=== PATIENT | male | born 1950 | race Caucasian/White ===

== ENCOUNTER 2023-06-24 10:05 | Outpatient (AMB) | payer MEDICARE, OTHER, SELFPAY ==
[2023-06-24 10:07] VITALS: BP 126/64; PULSE 87; O2SAT 100; BMI 23.1
--- NOTE | 2023-06-24 10:07 | HO.NEPHOV ---
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 Recently he was in the emergency room and was found to have a sodium of 122. Subsequently sodium increased to 124 and he has been referred for further evaluation. During this time urine osmolality was 66 with a urine sodium of 77. Ranulfo admits to drinking 2-3 ;12 Oz cans of beer every day. He also drinks 1-2 bottles of water. He has no history of smoking at present. No weight loss No polyuria polydipsia. No shortness of breath cough expectoration. [facility] Family History Mother Cancer Sister Cancer Sister Cancer Diabetes mellitus Social History (Updated 06/24/23 @ 10:08 by Moira Causey) Patient Tobacco Use Status: Former Tobacco user Physical Exam Vital Signs: Last Vital Signs Pulse 87 06/24/23 10:07 BP 126/64 06/24/23 10:07 Pulse Ox 100 06/24/23 10:07 Oxygen Delivery Method Room Air 06/24/23 10:07 BMI result Body Mass Index 23.1 Const General: comfortable Nutritional Appearance: well nourished Orientation/consciousness: patient oriented x3 HEENT Head: No normal to inspection Mouth: moist mucous membranes Neck Neck: Yes supple and Yes no JVD Resp Auscultation: clear to auscultation bilaterally, no rales and rub present Cardio Jugular venous distension: no JVD Palpation: no palpable S3 and no palpable S4 Heart sounds: no rubs GI Palpation (GI): Soft to palpation and nontender Percussion: No Fluid wave present General: Yes no CVA tenderness Back/Spine/Pelvis Back: no CVA tenderness Skin General skin exam: no rashes or lesions noted Neuro General: patient oriented x3 Extrem General: Yes no pedal edema and No clubbing Results Reviewed Results Reviewed: Lab results from [facility] were reviewed Nephrology Results: No Data to Display Assessment & Plan Assessment & Plan (1) Hyponatremia: Code(s): E87.1 - Hypo-osmolality and hyponatremia Category: Medical Plan: Ranulfo has a history of chronic asymptomatic hyponatremia. Based on the available lab data it appears that he probably has decreased free water clearance in the setting of beer intake. The low urine osmolality suggests a dilute urine which can be seen with excessive beer intake. I have initiated a workup including 24 hour urine collection to quantify the volume, repeat urine sodium creatinine osmolality along with serum osmolality serum cortisol and TSH levels. In the meantime I have asked him to document all the fluids he drinks order 24 hours For the next 2 days. He will return to office in the next 1 week For now he should stay on oral free water restriction of 1 L per 24 hours and I have encouraged him to cut back on the beer intake. Further recommendations will be based on the outcome of the above baseline investigations. (2) HTN (hypertension): Code(s): I10 - Essential (primary) hypertension Category: Medical Plan Blood pressure is well controlled. No changes were made to the antihypertensive regimen. Orders: Orders Creatinine, 24 Hr Group Today E87.1 - Hypo-osmolality and hyponatremia Cortisol, Free Today E87.1 - Hypo-osmolality and hyponatremia Creatinine Urine Today E87.1 - Hypo-osmolality and hyponatremia, N05.9 - Unspecified nephritic syndrome with unspecified morphologic changes Osmolality Urine Today E87.1 - Hypo-osmolality and hyponatremia Osmolality, Serum Today E87.1 - Hypo-osmolality and hyponatremia Basic Metabolic Panel Today E87.1 - Hypo-osmolality and hyponatremia Uric Acid Today E87.1 - Hypo-osmolality and hyponatremia UA and rflx microscopic Today E87.1 - Hypo-osmolality and hyponatremia Sodium Urine Random Today E87.1 - Hypo-osmolality and hyponatremia, N18.9 - Chronic kidney disease, unspecified TSH reflex Free T4 Today E87.1 - Hypo-osmolality and hyponatremia Coding Level of Care Code New Pt Level 4 (38702) Diagnoses Hyponatremia E87.1 HTN (hypertension) I10
== END 2023-06-24 10:29 | disposition home or self-care (01) ==
PROVIDERS: PCP Family Medicine; Visit Provider Internal Medicine Hypertension Specialist
DX: E87.1 Hypo-osmolality and hyponatremia (principal); I10 Essential (primary) hypertension
CPT/HCPCS: 99204

== ENCOUNTER → 2023-06-24 10:05 | Outpatient (BNVA) | payer MEDICARE, OTHER, SELFPAY | PROVIDERS: PCP Family Medicine; Visit Provider Internal Medicine Hypertension Specialist | DX: E87.1 Hypo-osmolality and hyponatremia (principal); I10 Essential (primary) hypertension | CPT/HCPCS: 99202 ==

== ENCOUNTER 2023-06-26 09:35 | Outpatient (REF) | payer MEDICARE, OTHER, SELFPAY ==
[2023-06-26 11:55] LABS: Appearance Urine Clear; Color Urine Yellow; Glucose Urine UA Negative (Negative); Leukocyte Esterase Urine Negative (Negative); Nitrite Urine Negative (Negative); PH 7.5 (5.0-9.0); Urine Blood Negative (Negative); Urine Ketones Negative (Negative); Urine Protein Trace mg/dL (Neg-Trace)
[2023-06-26 12:11] LABS: Osmolality, Serum 263 mosm/kg (281-305)
[2023-06-26 12:31] LABS: Anion Gap 12 (12-20); Blood Urea Nitrogen 14 mg/dL (9-16); Calcium 8.7 mg/dL (8.4-10.2); Carbon Dioxide 23 mmol/L (22-29); Chloride 94 mmol/L (96-108); Estimated Glomerular Filt Rate > 60; Glucose Random 75 mg/dL (60-115); Potassium 4.1 mmol/L (3.3-5.1); Sodium 125 mmol/L (135-145); Uric Acid 3.5 mg/dL (3.4-7.0)
[2023-06-26 12:32] LABS: TSH reflex Free T4 1.01 uIU/mL (0.32-4.0)
[2023-06-26 12:41] LABS: Osmolality Urine 374 mosm/kg (373-1093)
[2023-06-26 12:46] LABS: Creatinine Urine 49.69 mg/dL
[2023-06-26 12:52] LABS: Total Volume 24 Hour Urine 1925 mL
[2023-06-26 13:25] LABS: Creatinine, 24Hr Urine 0.7 G/Day (1.0-2.0); Creatinine, mg/dL 36.95
[2023-07-05 01:34] LABS: Cortisol, Free 0.45 mcg/dL
== END 2023-06-26 09:36 | disposition home or self-care (01) ==
LOC: HO.10HDL 09:35
PROVIDERS: Visit Provider Internal Medicine Hypertension Specialist
DX: E87.1 Hypo-osmolality and hyponatremia (principal); N05.9 Unspecified nephritic syndrome with unspecified morphologic changes; N18.9 Chronic kidney disease, unspecified
CPT/HCPCS: 36415; 80048; 81003; 82530; 82570; 83930; 83935; 84300; 84443; 84550

== ENCOUNTER 2023-06-30 09:21 | Outpatient (AMB) | payer MEDICARE, OTHER, SELFPAY ==
[2023-06-30 09:24] VITALS: BP 124/62; PULSE 88; O2SAT 99; BMI 23.0
--- NOTE | 2023-06-30 09:24 | HO.NEPHOV_ITS ---
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 Recently he was in the emergency room and was found to have a sodium of 122. Subsequently sodium increased to 124 and he has been referred for further evaluation. During this time urine osmolality was 66 with a urine sodium of 77. Ranulfo admits to drinking 2-3 ;12 Oz cans of beer every day. He also drinks 1-2 bottles of water. He has no history of smoking at present. No weight loss No polyuria polydipsia. No shortness of breath cough expectoration. 06/30/23 Overall feeling about the same. He did not track his fluid intake. Twenty-four urine collection showed a volume of 1925 cc. Repeat sodium was 125 millimoles. [facility] Family History Mother Cancer Sister Cancer Sister Cancer Diabetes mellitus Social History Patient Tobacco Use Status: Former Tobacco user Physical Exam Vital Signs: Last Vital Signs Pulse 88 06/30/23 09:24 BP 124/62 06/30/23 09:24 Pulse Ox 99 06/30/23 09:24 Oxygen Delivery Method Room Air 06/30/23 09:24 BMI result Body Mass Index 23.0 Const General: comfortable Nutritional Appearance: well nourished Orientation/consciousness: patient oriented x3 HEENT Head: No normal to inspection Mouth: moist mucous membranes Neck Neck: Yes supple and Yes no JVD Resp Auscultation: clear to auscultation bilaterally, no rales and rub present Cardio Jugular venous distension: no JVD Palpation: no palpable S3 and no palpable S4 Heart sounds: no rubs GI Palpation (GI): Soft to palpation and nontender Percussion: No Fluid wave present General: Yes no CVA tenderness Back/Spine/Pelvis Back: no CVA tenderness Skin General skin exam: no rashes or lesions noted Neuro General: patient oriented x3 Extrem General: Yes no pedal edema and No clubbing Results Reviewed Nephrology Results: Sodium 125 mmol/L (135-145) L 06/26/23 Potassium 4.1 mmol/L (3.3-5.1) 06/26/23 Chloride 94 mmol/L (96-108) L 06/26/23 Carbon Dioxide 23 mmol/L (22-29) 06/26/23 BUN 14 mg/dL (9-16) 06/26/23 Creatinine 0.95 mg/dL (0.5-1.4) 06/26/23 Calcium 8.7 mg/dL (8.4-10.2) 06/26/23 Urine Protein Trace mg/dL (Neg-Trace) 06/26/23 Urine Creatinine 49.69 mg/dL 06/26/23 Assessment & Plan Assessment & Plan (1) Hyponatremia: Code(s): E87.1 - Hypo-osmolality and hyponatremia Category: Medical Plan: Ranulfo has a history of chronic asymptomatic hyponatremia. Based on the available lab data it appears that he probably has decreased free water clearance in the setting of beer intake. The low urine osmolality suggests a dilute urine which can be seen with excessive beer intake. 24 hour urine collection revealed a volume of 1925 cc. TSH was normal Cortisol was pending. Again, I have asked him to document all the fluids he drinks order 24 hours for the next 2 days. For now he should stay on oral free water restriction of 1.2 L per 24 hours and I have encouraged him to cut back on the beer intake. In the meantime I will add urea powder 15 units p.o. daily and gradually titrate the dose as needed. And the set of serum electrolytes has been ordered to be done in the next 10 days (2) HTN (hypertension): Code(s): I10 - Essential (primary) hypertension Category: Medical Plan: Blood pressure is well controlled. Decrease amlodipine from 1-1/2 tablets of 2.5 mg down to 1 tablet. Monitor blood pressure at home Orders: Orders Basic Metabolic Panel 10 Days E87.1 - Hypo-osmolality and hyponatremia Medications: New urea (Ure-Na) 1 packet PO DAILY 30 ea 2RF Coding Level of Care Code Est Pt Level 4 (30102) Diagnoses Hyponatremia E87.1 HTN (hypertension) I10
== END 2023-06-30 09:49 | disposition home or self-care (01) ==
PROVIDERS: PCP Family Medicine; Visit Provider Internal Medicine Hypertension Specialist
DX: E87.1 Hypo-osmolality and hyponatremia (principal); I10 Essential (primary) hypertension
CPT/HCPCS: 99214

== ENCOUNTER → 2023-06-30 09:21 | Outpatient (BNVA) | payer MEDICARE, OTHER, SELFPAY | PROVIDERS: PCP Family Medicine; Visit Provider Internal Medicine Hypertension Specialist | DX: E87.1 Hypo-osmolality and hyponatremia (principal); I10 Essential (primary) hypertension | CPT/HCPCS: 99212 ==

== ENCOUNTER 2023-07-28 09:54 | Outpatient (AMB) | payer MEDICARE, OTHER, SELFPAY ==
[2023-07-28 09:58] VITALS: BP 122/70; PULSE 77; O2SAT 96; BMI 22.9
--- NOTE | 2023-07-28 09:58 | HO.NEPHOV ---
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 Recently he was in the emergency room and was found to have a sodium of 122. Subsequently sodium increased to 124 and he has been referred for further evaluation. During this time urine osmolality was 66 with a urine sodium of 77. Ranulfo admits to drinking 2-3 ;12 Oz cans of beer every day. He also drinks 1-2 bottles of water. He has no history of smoking at present. No weight loss No polyuria polydipsia. No shortness of breath cough expectoration. 06/30/23 Overall feeling about the same. He did not track his fluid intake. Twenty-four urine collection showed a volume of 1925 cc. Repeat sodium was 125 millimoles. 07/28/23 Unable to get urea powder due to cost and insurance issues. He continues to drink 2 cans of beer. No new issues PFSH Family History Mother Cancer Sister Cancer Sister Cancer Diabetes mellitus Social History Patient Tobacco Use Status: Former Tobacco user Physical Exam Vital Signs: Last Vital Signs Pulse 77 07/28/23 09:58 BP 122/70 07/28/23 09:58 Pulse Ox 96 07/28/23 09:58 Oxygen Delivery Method Room Air 07/28/23 09:58 BMI result Body Mass Index 22.9 Const General: comfortable Nutritional Appearance: well nourished Orientation/consciousness: patient oriented x3 HEENT Head: No normal to inspection Mouth: moist mucous membranes Neck Neck: Yes supple and Yes no JVD Resp Auscultation: clear to auscultation bilaterally and no rales Cardio Jugular venous distension: no JVD Palpation: no palpable S3 and no palpable S4 Heart sounds: no rubs GI Palpation (GI): Soft to palpation and nontender Percussion: No Fluid wave present General: Yes no CVA tenderness Back/Spine/Pelvis Back: no CVA tenderness Skin General skin exam: no rashes or lesions noted Neuro General: patient oriented x3 Extrem General: Yes no pedal edema and No clubbing Results Reviewed Results Reviewed: Jul 16 2023 Serum sodium 127 Nephrology Results: Sodium 125 mmol/L (135-145) L 06/26/23 Potassium 4.1 mmol/L (3.3-5.1) 06/26/23 Chloride 94 mmol/L (96-108) L 06/26/23 Carbon Dioxide 23 mmol/L (22-29) 06/26/23 BUN 14 mg/dL (9-16) 06/26/23 Creatinine 0.95 mg/dL (0.5-1.4) 06/26/23 Calcium 8.7 mg/dL (8.4-10.2) 06/26/23 Urine Protein Trace mg/dL (Neg-Trace) 06/26/23 Urine Creatinine 49.69 mg/dL 06/26/23 Assessment & Plan Assessment & Plan (1) Hyponatremia: Code(s): E87.1 - Hypo-osmolality and hyponatremia Category: Medical Plan: Ranulfo has a history of chronic asymptomatic hyponatremia. Based on the available lab data it appears that he probably has decreased free water clearance in the setting of beer intake. The low urine osmolality suggests a dilute urine which can be seen with excessive beer intake. 24 hour urine collection revealed a volume of 1925 cc. TSH was normal Cortisol was pending. For now he should stay on oral free water restriction of 1.2 L per 24 hours and I have encouraged him to cut back on the beer intake. Unable to get urea powder due to cost and insurance issues. I will add sodium chloride tablets 1 g b.i.d.. Monitor for leg edema and watch blood pressure at home while on sodium chloride tablets. serum electrolytes has been ordered to be done in a month . (2) HTN (hypertension): Code(s): I10 - Essential (primary) hypertension Category: Medical Plan: . Blood pressure is well controlled. Keep amlodipine 2.5 mg Monitor blood pressure at home . Orders: Orders Basic Metabolic Panel 1 Month E87.1 - Hypo-osmolality and hyponatremia Medications: New sodium chloride 1,000 mg PO BID 60 tabs 3RF Discontinued urea (Ure-Na) Discontinued Reason: Doctor's Order 1 packet PO DAILY 30 ea 2RF Coding Level of Care Code Est Pt Level 4 (69086) Diagnoses Hyponatremia E87.1 HTN (hypertension) I10
== END 2023-07-28 10:16 | disposition home or self-care (01) ==
PROVIDERS: PCP Family Medicine; Visit Provider Internal Medicine Hypertension Specialist
DX: E87.1 Hypo-osmolality and hyponatremia (principal); I10 Essential (primary) hypertension
CPT/HCPCS: 99214

== ENCOUNTER → 2023-07-28 09:54 | Outpatient (BNVA) | payer MEDICARE, OTHER, SELFPAY | PROVIDERS: PCP Family Medicine; Visit Provider Internal Medicine Hypertension Specialist | DX: E87.1 Hypo-osmolality and hyponatremia (principal); I10 Essential (primary) hypertension | CPT/HCPCS: 99212 ==

== ENCOUNTER 2023-10-30 10:00 | Outpatient (AMB) | payer MEDICARE, OTHER, SELFPAY ==
[2023-10-30 10:02] VITALS: BP 164/72; PULSE 72; O2SAT 99; BMI 22.6
--- NOTE | 2023-10-30 10:02 | HO.NEPHOV_ITS ---
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 Recently he was in the emergency room and was found to have a sodium of 122. Subsequently sodium increased to 124 and he has been referred for further evaluation. During this time urine osmolality was 66 with a urine sodium of 77. Ranulfo admits to drinking 2-3 ;12 Oz cans of beer every day. He also drinks 1-2 bottles of water. He has no history of smoking at present. No weight loss No polyuria polydipsia. No shortness of breath cough expectoration. 06/30/23 Overall feeling about the same. He did not track his fluid intake. Twenty-four urine collection showed a volume of 1925 cc. Repeat sodium was 125 millimoles. 07/28/23 Unable to get urea powder due to cost and insurance issues. He continues to drink 2 cans of beer. No new issues 10/30/2023. Overall is doing well. No new complaints. He has some aches and pains but does not take any NSAIDs. He was prescribed sodium chloride tablets 1 g b.i.d.. However his blood pressure was elevated therefore he cut it down to half a tablet today. [facility] Family History Mother Cancer Sister Cancer Sister Cancer Diabetes mellitus Social History Patient Tobacco Use Status: Former Tobacco user Physical Exam Vital Signs: Last Vital Signs Pulse 72 10/30/23 10:02 BP 164/72 H 10/30/23 10:02 Pulse Ox 99 10/30/23 10:02 Oxygen Delivery Method Room Air 10/30/23 10:02 BMI result Body Mass Index 22.6 Const General: comfortable Nutritional Appearance: well nourished Orientation/consciousness: patient oriented x3 HEENT Head: No normal to inspection Mouth: moist mucous membranes Neck Neck: Yes supple and Yes no JVD Resp Auscultation: clear to auscultation bilaterally and no rales Cardio Jugular venous distension: no JVD Palpation: no palpable S3 and no palpable S4 Heart sounds: no rubs GI Palpation (GI): Soft to palpation and nontender Percussion: No Fluid wave present General: Yes no CVA tenderness Back/Spine/Pelvis Back: no CVA tenderness Skin General skin exam: no rashes or lesions noted Neuro General: patient oriented x3 Extrem General: Yes no pedal edema and No clubbing Results Reviewed Nephrology Results: Sodium 125 mmol/L (135-145) L 06/26/23 Potassium 4.1 mmol/L (3.3-5.1) 06/26/23 Chloride 94 mmol/L (96-108) L 06/26/23 Carbon Dioxide 23 mmol/L (22-29) 06/26/23 BUN 14 mg/dL (9-16) 06/26/23 Creatinine 0.95 mg/dL (0.5-1.4) 06/26/23 Calcium 8.7 mg/dL (8.4-10.2) 06/26/23 Urine Protein Trace mg/dL (Neg-Trace) 06/26/23 Urine Creatinine 49.69 mg/dL 06/26/23 Assessment & Plan Assessment & Plan (1) Hyponatremia: Code(s): E87.1 - Hypo-osmolality and hyponatremia Category: Medical Plan: Ranulfo has a history of chronic asymptomatic hyponatremia. Based on the available lab data it appears that he probably has decreased free water clearance in the setting of beer intake. The low urine osmolality suggests a dilute urine which can be seen with excessive beer intake. 24 hour urine collection revealed a volume of 1925 cc. TSH was normal Cortisol was normal Repeat serum sodium was 131. Goal is to maintain serum sodium more than 130 millimoles. For now he should stay on oral free water restriction of 1.2 L per 24 hours and I have encouraged him to cut back on the beer intake. Unable to get urea powder due to cost and insurance issues. Keep sodium chloride tablets -half a day Mild elevation serum creatinine up to 1.28. Recheck serum creatinine 1 month and if the creatinine continues to trend upwards we will decrease valsartan by 50% and increase amlodipine. serum electrolytes has been ordered to be done in a month . (2) HTN (hypertension): Code(s): I10 - Essential (primary) hypertension Category: Medical Plan: . Blood pressure was suboptimal. Initial blood pressure elevated repeat blood pressure was better. I have asked him to monitor his blood pressure at home and call me if systolic blood pressures more than 140 mm. . Orders: Orders Basic Metabolic Panel 1 Month E87.1 - Hypo-osmolality and hyponatremia Coding Level of Care Code Est Pt Level 4 (36371) Diagnoses Hyponatremia E87.1 HTN (hypertension) I10
== END 2023-10-30 10:20 | disposition home or self-care (01) ==
PROVIDERS: PCP Family Medicine; Visit Provider Internal Medicine Hypertension Specialist
DX: E87.1 Hypo-osmolality and hyponatremia (principal); I10 Essential (primary) hypertension
CPT/HCPCS: 99214

== ENCOUNTER → 2023-10-30 10:00 | Outpatient (BNVA) | payer MEDICARE, OTHER, SELFPAY | PROVIDERS: PCP Family Medicine; Visit Provider Internal Medicine Hypertension Specialist | DX: E87.1 Hypo-osmolality and hyponatremia (principal); I10 Essential (primary) hypertension | CPT/HCPCS: 99212 ==

== ENCOUNTER 2024-01-29 10:09 | Outpatient (AMB) | payer MEDICARE, OTHER, SELFPAY ==
[2024-01-29 10:19] VITALS: BP 136/62; PULSE 62; O2SAT 98; BMI 22.9
--- NOTE | 2024-01-29 10:19 | HO.NEPHOV ---
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 Recently he was in the emergency room and was found to have a sodium of 122. Subsequently sodium increased to 124 and he has been referred for further evaluation. During this time urine osmolality was 66 with a urine sodium of 77. Ranulfo admits to drinking 2-3 ;12 Oz cans of beer every day. He also drinks 1-2 bottles of water. He has no history of smoking at present. No weight loss No polyuria polydipsia. No shortness of breath cough expectoration. 06/30/23 Overall feeling about the same. He did not track his fluid intake. Twenty-four urine collection showed a volume of 1925 cc. Repeat sodium was 125 millimoles. 07/28/23 Unable to get urea powder due to cost and insurance issues. He continues to drink 2 cans of beer. No new issues 10/30/2023. Overall is doing well. No new complaints. He has some aches and pains but does not take any NSAIDs. He was prescribed sodium chloride tablets 1 g b.i.d.. However his blood pressure was elevated therefore he cut it down to half a tablet today. 01/29/24 No new issues PFSH Family History Mother Cancer Sister Cancer Sister Cancer Diabetes mellitus Social History Patient Tobacco Use Status: Former Tobacco user Physical Exam Vital Signs: Last Vital Signs Pulse 62 01/29/24 10:19 BP 136/62 01/29/24 10:19 Pulse Ox 98 01/29/24 10:19 Oxygen Delivery Method Room Air 01/29/24 10:19 BMI result Body Mass Index 22.9 Results Reviewed Nephrology Results: Sodium 125 mmol/L (135-145) L 06/26/23 Potassium 4.1 mmol/L (3.3-5.1) 06/26/23 Chloride 94 mmol/L (96-108) L 06/26/23 Carbon Dioxide 23 mmol/L (22-29) 06/26/23 BUN 14 mg/dL (9-16) 06/26/23 Creatinine 0.95 mg/dL (0.5-1.4) 06/26/23 Calcium 8.7 mg/dL (8.4-10.2) 06/26/23 Urine Protein Trace mg/dL (Neg-Trace) 06/26/23 Urine Creatinine 49.69 mg/dL 06/26/23 Assessment & Plan Assessment & Plan (1) Hyponatremia: Code(s): E87.1 - Hypo-osmolality and hyponatremia Category: Medical Plan: Ranulfo has a history of chronic asymptomatic hyponatremia. Based on the available lab data it appears that he probably has decreased free water clearance in the setting of beer intake. The low urine osmolality suggests a dilute urine which can be seen with excessive beer intake. 24 hour urine collection revealed a volume of 1925 cc. TSH was normal Cortisol was normal Repeat serum sodium was 131. Goal is to maintain serum sodium more than 130 millimoles. For now he should stay on oral free water restriction of 1.2 L per 24 hours and I have encouraged him to cut back on the beer intake. Unable to get urea powder due to cost and insurance issues. Keep sodium chloride tablets -half a day Mild elevation serum creatinine up to 1.35 down to 1.2 as of Nov. REpeat labs next month. (2) HTN (hypertension): Code(s): I10 - Essential (primary) hypertension Category: Medical Plan: . Blood pressure was suboptimal. Initial blood pressure elevated repeat blood pressure was better. I have asked him to monitor his blood pressure at home and call me if systolic blood pressures more than 140 mm. . Orders: Orders Basic Metabolic Panel 1 Month E87.1 - Hypo-osmolality and hyponatremia Coding Level of Care Code Est Pt Level 4 (28837) Diagnoses Hyponatremia E87.1 HTN (hypertension) I10
--- OUTSIDE RECORDS SUMMARY | 2024-01-29 10:20 | XMS_ITS | Continuity of Care Document ---
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 Phone Wayne Acuna DO Primary Care Physician Encounter [facility] Date(s): 12/18/23 - 01/17/24 [facility] [place] [address] [place] [address]- Attending Physician: AdmHardik clemens Admitting Physician: AdmtrHardik Referring Physician: Admtr, [id number] Encounter Type: Triage Allergies, Adverse Reactions, Alerts Substance Criticality Severity Reaction Reaction Severity Status penicillin RASH Active Immunizations Given and Recorded Vaccine Date Status Refusal Reason SARS-CoV-2 (COVID-19) mRNA-1273 vaccine 07/14/20 R ecorded SARS-CoV-2 (COVID-19) mRNA-1273 vaccine 06/16/20 R ecorded SARS-CoV-2 mRNA (clzlynp-kiuy-lodxc) vax 05/18/20 Recorded tetanus/diphtheria/pertussis, acel(Tdap) 10/23/10 Recorded Influenza Vaccine (oldterm) 1 01/23/07 Given tetanus-diphtheria toxoids (Td) 07/01/01 Given 1Admin Note: DECLINED Medications Acetaminophen = 500 mg, 0 Refills, Maintenance, 08/08/20 11:16:00 AM EDT, Partial fill upon patient request if theprescription is for a schedule II opioid drug. Start Date: 08/08/20 Status: Ordered Repeat number: 1 amLODIPine 2.5 mg oral tablet 1.5 tablet = 3.75 mg, By Mouth, Daily, 1 tablet, # 135 tablet, 3 Refills, Maintenance, 08/07/23 8:36:00 AM EDT, Tablet, [facility], Partial fill upon patient request if the prescription is for a schedule II opioid drug., 180, cm, 08/07/23 8:24:00 EDT, Height, 75.3, kg, 06/07/23 17:26:00 EDT, Dry Weight Start Date: 08/07/23 Status: Ordered Quantity: 135.0 Unit: tablet Repeat number: 4 aspirin 81 mg oral delayed release tablet 81 mg, 1, tablet, By Mouth, Daily, # 30 tablet, Refills 0, Tot. Refills 0, Maintenance, 07/18/22 9:59:00 AM EDT, Route to Pharmacy Electronically, [facility], Partial fill upon patient request if the prescription is for a schedule II opioid drug., 179, cm, 07/18/22 9:55:00 EDT, Height, 78.9, kg, 07/19/20 11:05:00 EDT, Dry Weight Start Date: 07/18/22 Status: Ordered Quantity: 30.0 Unit: tablet Repeat number: 1 atorvastatin 40 mg oral tablet 1 tablet = 40 mg, By Mouth, Daily, # 90 tablet, 3 Refills, Maintenance, 08/07/23 8:36:00 AM EDT, Tablet, [facility], Partial fill upon patient request if the prescription is for a schedule II opioid drug., 180, cm, 08/07/23 8:24:00 EDT, Height, 75.3, kg, 06/07/23 17:26:00 EDT, DryWeight Start Date: 08/07/23 Status: Ordered Quantity: 90.0 Unit: tablet Repeat number: 4 Flax 0 Refills, 09/13/05 8:37:50 AM EDT Start Date: 09/13/05 Status: Ordered Repeat number: 1 Flonase 50 mcg/inh nasal spray 1 sprays, Nares, Both, 2 times a day, # 16 Gm, 0 Refills, Maintenance, 07/19/20 11:10:00 AM EDT, [place], Partial fill upon patient request if the prescription is for a schedule II opioid drug. Start Date: 07/19/20 Status: Ordered Quantity: 16.0 Unit: g Repeat number: 1 MiraLax oral powder for reconstitution = 17 Gm, By Mouth, Daily, 1 scoop mix with liquid, # 527 Gm, 1 Refills, Maintenance, 08/07/23 8:38:00 AM EDT, [facility], Partial fill upon patient request if the prescription is for a schedule II opioid drug., 17 Gm By Mouth Daily,Instr:1 scoop mix with liquid, 180, cm, 08/07/23 8:24:00 EDT, Height, 75.3, kg, 06/07/23 17:26:00 EDT, Dry Weight Start Date: 08/07/23 Status: Ordered Quantity: 527.0 Unit: g Repeat number: 2 Indication: Constipation, unspecified valsartan 320 mg oral tablet 1 tablet = 320 mg, By Mouth, Daily, # 90 tablet, 3 Refills, Maintenance, 08/07/23 8:37:00 AM EDT, Tablet, [facility], Partial fill upon patient request if the prescription is for a schedule II opioid drug., 180, cm, 08/07/23 8:24:00 EDT, Height, 75.3, kg, 06/07/23 17:26:00 EDT, Dry Weight Start Date: 08/07/23 Status: Ordered Quantity: 90.0 Unit: tablet Repeat number: 4 Vitamin D3 1000 intl units oral tablet By Mouth, Daily, 2 daily, 0 Refills, Maintenance, 07/19/20 11:11:00 AM EDT, Partial fill upon patientrequest if the prescription is for a schedule II opioid drug. Start Date: 07/19/20 Status: Ordered Repeat number: 1 Problem List Condition Confirmation Course Effective Dates Status Health Status Informant Actinic keratosis Confirmed 03/2001 Active Carotid artery stenosis Confirmed Active Constipation Confirmed Active Essential hypertension Confirmed Active History of syncope Confirmed Active Hyponatremia Confirmed Active Low back pain Confirmed Active Mixed hyperlipidemia Confirmed Active Osteoarthritis of right hip Confirmed Active Medicare annual wellness visit, subsequent Confirmed Active Other right bundle-branch block Confirmed Active Seborrheic keratosis Confirmed 2004 Active Spondylolisthesis at L5-S1 level Confirmed Active Left ankle swelling Confirmed Active Social History Social History Type Response Smoking Status Former smoker, quit more than 30 days ago; Other: quit ; entered on: 11/14/22 Sex Sex Representation Male (finding) Laboratory * Event Display: Laboratory Result Scanned Authored Date: [id number] Patient Care team information Care Team Personnel Name: LillyKarie almeida Position: [facility] Outreach Member Role: Lifetime Consulting Physician Name: Wayne Acuna DO Position: [facility] Physician - Primary Care Member Role: PCP Address: [address] [place] [id number] Telecom: Care Team Related Persons Name: BERNARD CORDOVA Insurance Providers Guarantor name: JONNATHAN TASHA Health Plan Information #: 1 Payer: MEDICARE PART B OUTPT Member Number: NA Policy Number: NA Group Number: NA Health Plan Information #: 2 Payer: FOR LIFE MCR A ONLY Member Number: NA Policy Number: NA Group Number: NA
--- OUTSIDE RECORDS SUMMARY | 2024-01-29 10:20 | XMS_ITS | Continuity of Care Document ---
Author Organization [facility] [place] Address [address] [place] [address]- Care Team Providers Care Jd Edwards Name Role Phone Wayne Acuna DO Primary Care Physician Encounter [facility] Date(s): 12/16/23 - 01/15/24 [facility] [place] Adult [address] [place] [address]- Encounter Type: Triage Allergies, Adverse Reactions, Alerts Substance Criticality Severity Reaction Reaction Severity Status penicillin RASH Active Immunizations Given and Recorded Vaccine Date Status Refusal Reason SARS-CoV-2 (COVID-19) mRNA-1273 vaccine 07/14/20 R ecorded SARS-CoV-2 (COVID-19) mRNA-1273 vaccine 06/16/20 R ecorded SARS-CoV-2 mRNA (sttncxo-drwa-phxur) vax 05/18/20 Recorded tetanus/diphtheria/pertussis, acel(Tdap) 10/23/10 Recorded [...] 0 Refills, Maintenance, 07/19/20 11:10:00 AM EDT, [place], Partial fill upon patient request if the [...] on: 11/14/22 Sex Sex Representation Male (finding) Patient Care team information Care Team Personnel Name: Karie Carr Position: [facility] Outreach Member Role: Lifetime Consulting Physician Name: Wayne Acuna DO Position: [facility] Physician - Primary Care Member Role: PCP Address: [address] [place] [address]- Telecom: Care Team Related Persons Name: BERNARD CORDOVA Insurance Providers Guarantor name: JONNATHAN TOMLINSONMINDY Health Plan Information #: 1 Payer: MEDICARE PART B OUTPT Member Number: NA Policy Number: NA Group Number: NA Health Plan Information #: 2 Payer: FOR LIFE MCR A ONLY Member Number: NA Policy Number: NA Group Number: NA
--- OUTSIDE RECORDS SUMMARY | 2024-01-29 10:20 | XMS_ITS | Data Portability ---
Author Organization MELISSA Lazo s, [address] Address [address] [place] [address] Assessment No assessment recorded. Plan of Treatment Reminders Order Date Submit Date Provider Last Modified By Organization Details Last Modified Time Details Appointments None recorded. Lab None recorded. Referral orthopedic surgeon referral 2023 024 [facility], [address] [place] [address], [address], 4 10:27:52 Procedures None recorded. Surgeries None recorded. Imaging None recorded. Medication Orders clindamycin HCl 300 mg capsule 2023 024 [facility], [address] [place], [address], 4 10:22:48 Florastor 250 mg capsule 2023 024 [email or web address] [facility], [address] [place], [address], 4 16:04:48 Patient TargetsNo targets recorded. Patient Instructions Encounter Date Encounter Id Patient Instructions Last Modified By Organization Details Last Modified Time 08/13/2023 [id number] Bursitis is pain and swelling of the bursae. These are sacs of fluid that help your joints move smoothly. Olecranon bursitis is a type of bursitis that affects the back of the elbow. This is sometimes called Mike elbow because the bump that develops looks like the cartoon character Mike's elbow. Injury, overuse, or prolonged pressure on your elbow can cause this form of bursitis. Sometimes it happens when people have arthritis. It also can occur for unknown reasons. Treatment may include draining fluid from the bursa with a needle. If your doctor thought there was infection, he or she may have prescribed antibiotics. You also may get shots of medicine into the bursa to help the swelling go down. Your elbow should get better in a few days or weeks. Take pain medicines exactly as directed. If the doctor gave you a prescription medicine for pain, take it as prescribed. If you are not taking a prescription pain medicine, ask your doctor if you can take an hujz-yoy-szprjvq medicine. Do not take two or more pain medicines at the same time unless the doctor told you to. Many pain medicines have acetaminophen, which is Tylenol. Too much acetaminophen (Tylenol) can be harmful. If your doctor prescribed antibiotics, take them as directed. Do not stop taking them just because you feel better. You need to take the full course of antibiotics. If your doctor gave you a sling, an elastic bandage, or a compression sleeve, wear it exactly as instructed. Put ice or a cold pack on your elbow for 10 to 20 minutes at a time. Try to do this every 1 to 2 hours for the next 3 days (when you are awake) or until the swelling goes down. Put a thin cloth between the ice and your skin. After 3 days, you can try heat, or alternate heat and ice. Rest your elbow. Try to stop or reduce any activity that causes pain. Wear elbow pads during physical activity to prevent injury. Do not lean your elbows on tables or armrests. Call your doctor or or seek immediate medical care if: You have new or worse symptoms of infection, such as: Increased pain, swelling, warmth, or redness. Red streaks leading from the area. Pus draining from the area. A fever. [email or web address] Not available 08/13/2023 10:22:10 A/P: Olecranon bursitis to left elbow with full ROM and no joint involvement. Has mild local erythema. Otherwise, patient has no pain. Plan: Start on empiric ABX with conservative management and ORTHO F.U. Pt agreed to plan [email or web address] Not available 08/13/2023 16:14:01 Reason for Referral Orthopedic Surgeon Referral for Bursitis of olecranon of left elbow Referring Physician: Jermaine Merida, Urgent Care, Encounter Date: 08/13/2023 Problems Name Problem SNOMED Code Status Onset Date Resolution Date Notes Provider Name and Address Organization Details Recorded Time Hypertensive disorder 85556978 Active 2023 MELISSA Corado - [facility] 4 09:56:27 Hypercholestero lemia 09555469 Active 2023 MELISSA Corado [facility] 4 09:56:32 Problem Notes None recorded. Medical Equipment None Reported. Allergies Allergen ID Allergen Name Allergen Category Reaction Reaction Severity Criticality Documentation Date Start Date Code Code System Note Provider Name and Address Organization Details Recorded Time 533735 Medicinal product containin g penicilli n and acting as antibacte rial agent (product) medicatio n hives Not available Not available 08/13/2023 40399 05 SNOMED Georgina suarez [facility] 4 09:56:57 Medications Name Sig Start Date Stop Date Status Note LastModified by Organization Details LastModified Time cyclobenzapr ine 10 mg tablet TAKE ONE TABLET BY MOUTH 3 TIMES A DAY FOR 10 DAYS NEEDED active Not Available Not Available No t Available atorvastatin 40 mg tablet active Not Available Not Available Not Available clindamycin HCl 300 mg capsule Take 1 capsule 4 times a day by oral route for 7 days. 2023 active Not Available Not Available Not Avai lable amlodipine 2.5 mg tablet TAKE ONE AND ONE-HALF TABLETS ONCE DAILY active Not Available Not Available N ot Available Nitro-Bid 2 % transdermal ointment active Not Available Not Available Not Available neomycin-jeffery ymyxin-dexam eth 3.5 mg/mL-10,000 unit/mL-0.1% eye drops INSTILL 1 DROP IN LEFT EYE THREE TIMES A DAY X 1 WEEK THEN DAILY X 1 WEEK AND THEN STOP active Not Available Not Available No t Available valsartan 320 mg tablet TAKE ONE TABLET BY MOUTH EVERY DAY active Not Available Not Available No t Available fluocinonide 0.05 % topical solution active Not Available Not Available Not Available clobetasol 0.05 % scalp solution active Not Available Not Available Not Available Florastor 250 mg capsule Take 1 capsule twice a day by oral route for 14 days. 06/26/ 2024 active Not Available Not Available Not Avai lable lactulose 10 gram/15 mL oral solution TAKE 15MLS BY MOUTH DAILY NEEDED FOR CONSTIPATIO N active Not Available Not Available No t Available sodium chloride 1,000 mg soluble tablet TAKE 1 TABLET BY MOUTH TWICE DAILY active Not Available Not Available No t Available Vitals Date Recorded Body height Body mass index (BMI) Body weight Body temperature Respiratory rate Heart rate Oxygen saturation Oxygen saturation in Arterial blood by Pulse oximetry Systolic blood pressure Diastolic blood pressure Provider Name and Address Organization Details Last Updated DateTime 180.34 cm 24.4 kg/m2 68252.6 6 g 97.6 [degF] 18 /min 86 /min 99 % 99 % 134 mm[Hg] 78 mm[Hg] Georgina TORRES [facility] 09:59:18 Social History Question Answer Notes LastModified by Organizat ion Details LastModified Time Tobacco Smoking Status Never Smoker Georgina suarez PA [facility] 08/13/2023 09:57:29 What Is Your Level Of Alcohol Consumption? Occasional Information not available 08/13/2023 Are You Currently Employed? No Information not available 08/13/2023 Have You Had A Flu Shot This Season? No Information not available 08/13/2023 Have You Had Direct Contact, Or Contact During Intimacy, With Monkeypox Rash, Scabs, Or Body Fluids From A Person With Monkeypox? No Information not available 08/13/2023 What Is Your Relationship Status? Information not available 08/13/2023 Do You Use Any Illicit Or Recreational Drugs? No Information not available 08/13/2023 Have You Recently Traveled Abroad? No Information not available 08/13/2023 Are You Currently In School? No Information not available 08/13/2023 Do You Or Have You Ever Used Any Other Forms Of Tobacco Or Nicotine? No Information not available 08/13/2023 Sex: Unknown Functional Status None recorded. Mental Status None recorded. Family History Relationship Description Onset Age of this Age Resolved Age Notes LastModified by Organization Details LastModified Time Father No current problems or disability Not available 08/12 09:57:14 Mother No current problems or disability Not available 08/12 09:57:14 Medical History No medical history recorded. Past Encounters Encounter ID Performer Location Encounter Start Date Encounter Closed Date Diagnosis/Indication Diagnosis SNOMED-CT Code Diagnosis ICD10 Code [id number] [address] [place] [address] 06/27/2020 10:00:42 06/27/2020 10:43:21 [id number] MELISSA MACEDO [address] [place] [address] 08/13/2023 09:53:51 08/13/2023 10:27:52 Bursitis of olecranon of left elbow 9893169332 85697 M70.22 Infected o lecranon bursa 316439322 M71.129 Health Concerns Section Related Observation LastModified by Organization Detai ls LastModified Time None Recorded Concern Status LastModified by Organization Details LastModified Time None Recorded Advance Directives Directive None Recorded Payers Encounter Date Sequence Insurance Name Policy Number Policy Reina Covered Member ID Reina Member ID Guarantor Name 06/27/2020 1 [place] [facility] Tani Yu [id number] Tani Yu 08/13/2023 1 [place] [facility] Tani Yu [id number] Tani Aimee Notes Date Note Type Note Provider Name and Address Organization Details Recorded Time 08/13/2023 text/html Upper Arm Elbow Injury UCReported bypatient.Notes:[age] y.o male pt presents with left elbow swelling that started this morning. Pain is mild. He has no h.o direct trauma. He has mild erythema to the center of lump on elbow. He has full ROM WITH NO STIFFNESS. MELISSA MACEDO [address] [place], [address], [place] - [facility] 08/13/2023 16:14:08
--- OUTSIDE RECORDS SUMMARY | 2024-01-29 10:21 | XMS_ITS | Continuity of Care Document ---
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 Medication Details Route Status Patient Instructions Prescription Expires Prescription Number Last Dispense Date Ordering Provider Order Date Order Qty Source AMLODIPINE BESYLATE (AMLODIPINE BESYLATE), 2.5 MG, TABLET, ORAL, [facility], 90 ea. BOTTLE Cancele d [id number] : 2023 0 Pharmac y Data Transac tion Service Facilit y AMLODIPINE BESYLATE (AMLODIPINE BESYLATE), 2.5 MG, TABLET, ORAL, [facility], 90 ea. BOTTLE Active [id number] 4 2023 135 Pharmac y Data Transac tion Service Facilit y AMLODIPINE BESYLATE (amlodipine besylate), 2.5 MG, TABLET, ORAL, [facility], 1000 ea. BOTTLE Cancele d [id number] : 2022 0 Pharmac y Data Transac tion Service Facilit y ATORVASTATI N CALCIUM (atorvastat in calcium), 40 MG, TABLET, ORAL, [employer] 1000 ea. BOTTLE Cancele d [id number] : 2022 0 Pharmac y Data Transac tion Service Facilit y ATORVASTATI N CALCIUM (atorvastat in calcium), 40 MG, TABLET, ORAL, [facility], 1000 ea. BOTTLE Active [id number] 4 2023 90 Pharmac y Data Transac tion Service Facilit y ATORVASTATI N CALCIUM (atorvastat in calcium), 40 MG, TABLET, ORAL, [facility], 1000 ea. BOTTLE Active [id number] 4 2023 90 Pharmac y Data Transac tion Service Facilit y CLINDAMYCIN HCL (CLINDAMYCI N HCL), 300MG, CAPSULE, ORAL, [facility], 100 ea. BOTTLE Active [id number] 2023 28 Pharmac y Data Transac tion Service Facilit y CLOBETASOL PROPIONATE (clobetasol propionate) , 0.05 %, SOLUTION, TOPICAL, [employer] 50 ml BOTTLE Active [id number] 4 2023 150 Pharmac y Data Transac tion Service Facilit y NEOMYCIN-PO LYMYXIN-DEX AMETH (neomycin/p olymyxin B sulfate/dex amethasone) , 0.1 %, DROPS SUSP, OPHTHALMIC, [facility], 5 ml DROP BTL Cancele d [id number] : 2023 0 Pharmac y Data Transac tion Service Facilit y NITRO-BID (NITROGLYCE RIN), 2 %, OINT. (G), TRANSDERM, [facility] 30 g TUBE Active [id number] 4 2023 90 Pharmac y Data Transac tion Service Facilit y VALSARTAN (valsartan) , 320 MG, TABLET, ORAL, [facility], 90 ea. BOTTLE Active [id number] 4 2023 90 Pharmac y Data Transac tion Service Facilit y VALSARTAN (valsartan) , 320 MG, TABLET, ORAL, [facility], 90 ea. BOTTLE Active [id number] 4 2023 90 Pharmac y Data Transac tion Service Facilit y Immunizations Combined list of available immunizations from the Department of Defense and Veterans Affairs facilities. Immunization Series Date Given Administered By Site Reaction Lot Number CVX Code Drug Medical Record Consultant Status Comments Source COVID-19 (MODERNA), MRNA, LNP-S, PF, 100 MCG/0.5 ML DOSE 2 2020 207 complet ed MOD; [id number]; 1 [place] [facility] COVID-19 (MODERNA), MRNA, LNP-S, PF, 100 MCG/0.5 ML DOSE 1 2020 207 complet ed MOD; [id number]; 1 [place] [facility] Encounters Combined list of: 1) Encounters from Department of Veterans Affairs facilities going back up to thelast 18 months. 2) Encounters from the Department of Defense facilities going back up to 280 months. Location Location Details Encounter Type Encounter Number Reason For Visit Attending Provider ADM Date DC Date Status Disposition Source [facility] En[facility] [id number] 12/18 [place] [facility] Social History Combined list of available smoking, tobacco, and other social history from Department of Defense and Veterans Affairs facilities. Social History Type Response Date Comment Sour e This section is an empty social history section. [facility]D
--- OUTSIDE RECORDS SUMMARY | 2024-01-29 10:21 | XMS_ITS ---
Author Organization [facility] Address [address] [facility] [place] [address] Care Team Providers Care Restaurant Line Server Name Role Phone Andres Seals Unavailable [phone] Wayne Acuna Unavailable Unavailable Allergies Allergen (clinical drug ingredient) Drug/Non Drug Allergy documented on EMR Reaction Allergy Type Onset Date Status Penicillin rash Drug Allergy Active REASON FOR VISIT Last Visit PCP 07/18/2021 Medications Medication SIG (Take, Route, Frequency, Duration) Notes Start Date End Date Status Cephalexin 500 MG 1 capsule Orally kye ry 6 hrs for 5 day(s) Not-Taking Nitro-Bid 2 % as directed Transder mal apply bid to both forefeet for 30 days 05/03/2015 Not-Taking Nitro-Bid 2 % as directed Transder mal bid to toes for 90 days Active Valsartan 320 MG 1 tablet Orally Once a day Not-Taking Cephalexin 500 MG 1 capsule Orally kye ry 6 hrs for 5 day(s) Not-Taking Diovan Active Vitamin D 2000 UNIT Orally Active Nitro-Bid 2 % as directed Transder mal daily for 30 days 02/12/2021 Active Simvastatin 40 MG 1 tablet in the even ing Orally Once a day 04/13/2015 Active Flaxseed Oil 2000 MG Orally Active Aspir-81 81 MG 1 tablet Orally Once a day 04/13/2015 Active amLODIPine Besylate 2.5 MG 1 tablet Orally Once a day 04/13/2015 Active Social History Tobacco Use: Social History Observation Description Date Details (start date - stop date) Former Smoker NA - NA Tobacco Use/Smoking Question Answer Notes Are you a: former smoker Additional Findings: Tobacco Non-User Current no n-smoker Alcohol Screen Question Answer Notes Did you have a drink containing alcohol in the p ast year? Yes Points 0 Interpretation Negative Tobacco use other than smoking: Question Answer Notes Are you an other tobacco user? No Vital Signs Height 5 ft 11 in in 06/04/2023 Weight 175 lbs 06/04/2023 BMI 24.40 kg/m2 06/04/2023 Encounters Encounter Location Date Provider Diagnosis [facility] [place] [address] [place] [address] 06/04/2023 Andres Seals Raynauds disease without gangrene I73.00 ; Pain in left foot M79.672 ; Pain in right foot M79.671 ; Ingrown nail L60.0 and Tinea unguium B35.1 Assessments Encounter Date Diagnosis (ICD Code) Assessment Notes Treatment Notes Treatment Clinical Notes Section Notes 06/04/2023 Raynauds disease without gangrene (ICD-10 - I73.00) 06/04/2023 Pain in left foot (ICD-10 - M79.672) 06/04/2023 Pain in right foot (ICD-10 - M79.671) 06/04/2023 Ingrown nail (ICD-10 - L60.0) 06/04/2023 Tinea unguium (ICD-10 - B35.1) Plan Of Treatment Medication Medication Name Sig Start Date Stop Date Notes Nitro-Bid 2 % as directed Transder mal bid to toes for 90 days Next Appt Details Follow Up: prn, Reason: Progress Notes * Tani CORDOVA RDOB: [birth year] (72 yo M)Acc No.[id number]:06/04/2023 Progress Note Patient:?Tani Cordova R Provider:?Andres Seals DPM :1950???Age:72 Y???Sex:Male Nadir e:06/04/2023 Address:[address] [place], [place] [id number] Subjective: * Chief Complaints: * ???Last Visit PCP 07/18/2021 * HPI: ???Skin problems:?Nature:?discolored and cold , aching.?Location:?B/L , Toe(s).?Duration:?several years.?Onset/Cause:?gradual.?Course:?intermittent.?Aggravated by:?any pressure.?Treatments:?nitrobid.?Severity/Quality:?moderate.?Ingrown toenail:?Nature:?tenderness.?Location:?Great toe, Right foot.?Onset/Cause:?unknown.?Course:?intermittent.?Aggrevated by:?any pressure.?Treatments:?self treatment.? * ROS:?General/Constitutional:?Nausea?denies, denies.?Vomiting?denies, denies.?Hunger Thirst?denies, denies.?Loss appetite?denies, denies.?Chills?denies, denies.?Fatigue?denies, denies.?Fever?denies, denies.?Night Sweats denies, denies.?Unexplained weight loss?denies, denies.?Unexplained weight gain?denies, denies.?HEENTM:?Dentures?denies, denies.?Dizziness?denies, denies.?Glasses/contacts?denies, denies.?Retinopathy?denies, denies.?Blurred/double vision?denies, denies.?TMJ?denies, denies.?Discharge/drainage?denies, denies.?Implants?denies, denies.?Sore throat?denies, denies.?Dental implants?denies, denies.?Hard of hearing ?denies, denies.?Difficulty chewing/swallowing/speaking?denies, denies.?Nose bleeds?denies, denies.?Sore mouth?denies, denies.?Respiratory:?On Oxygen?denies, denies.?Pneumonia/pleurisy?denies, denies.?Bronchitis?denies, denies.?Emphysema?denies, denies.?Coughing?denies, denies.?Cough blood?denies, denies.?Shortness of breath?denies, denies.?Wheezing?denies, denies.?Cardiovascular:?Pacemaker?denies, denies.?MVP?denies, denies.?WPW?denies, denies.?CHF?denies, denies.?Heart attack?denies, denies.?Septal defect?denies, denies.?Rapid beat?denies, denies.?Chest pain ?denies, denies.?Atrial Fib.?denies, denies.?Murmur/Palpitations?denies, denies.?Gastrointestinal:?Hemorrhoids?denies, denies.?Stomach/Abdominal pain?denies, denies.?Dark blood stool?denies, denies.?Irritable bowel ?denies, denies.?Constipation?denies, denies.?Diarrhea?denies, denies.?Hematology:?Swelling?denies, denies.?Clots?denies, denies.?Varicose Veins?denies, denies.?Bruising?denies, denies.?Bleeding problem?denies, denies.?Genitourinary:?Blood urine?denies, denies.?Frequent/Painfu/urination/bladder control?denies, denies.?Kidney stones?denies, denies.?Infection (UTI)?denies, denies.?Nephropathy?denies, denies.?sex trans dis (STD)?denies, denies.?Prostate?denies, denies.?Musculoskeletal:?Hammertoes?denies, denies.?Bunions?denies, denies.?Back Pain?denies, denies.?Muscle Cramps/ Resting?denies, denies.?Muscle cramps / walking?denies, denies.?Generalized aches and pains?denies, admits.?Weakness?denies, denies.?Integ.:?Manriquez?denies, denies.?Scars?denies, denies.?Corns/calluses?denies, admits.?Ingrown nails?admits, admits.?Painful nails?admits, denies.?Open Sores?denies, denies.?Rashes?denies, denies.?Neurologic:?Difficulty sleeping?denies, denies.?Brain disorder?denies, denies.?Numbness?denies, denies.?Balance trouble?denies, denies.?Confusion?denies, denies.?Fainting/blackouts?denies, denies.?Tingling?denies, denies.?Tremors?denies, denies.? * Medical History:? * Surgical History:?cataract s urgery-both eyes 02/06/15, 02/22/15retinal laser 09/2013 * Hospitalization/Major Diagno stic Procedure:?No Hospitalization History. * Family History:?Mother: dece ased.?Father: .?Siblings: alive, Lung Cancer - sister, diagnosed with Other malignant neoplasm of unspecified site.? * Social History:?Tobacco Use:?Tobacco Use/Smoking?Are you a:?former smoker ?Additional Findings: Tobacco Non-User?Current non-smoker ?Tobacco use other than smoking?Are you an other tobacco user??No ???Drugs/Alcohol:?Drugs?Have you used drugs other than those for medical reasons in the past 12 months??No ?Alcohol Screen?Did you have a drink containing alcohol in the past year??Yes ?Points?0 ?Interpretation?Negative ???Miscellaneous:?Caffeine: yes, 1-2 cups per day. ?no Children. ?Exercise: yes, exercises. ?Marital status: , . 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 * Medications:?TakingamLODIPin e Besylate 2.5 MG Tablet 1 tablet Orally Once a dayAspir-81 81 MG Tablet Delayed Release 1 tablet Orally Once a dayDiovan Flaxseed Oil 2000 MG Capsule Orally Nitro-Bid 2 % Ointment as directed Transdermal dailySimvastatin 40 MG Tablet 1 tablet in the evening Orally Once a dayVitamin D 2000 UNIT Tablet Orally Nitro-Bid 2 % Ointment as directed Transdermal bid to toesTaking amLODIPine Besylate 2.5 MG Tablet 1 tablet Orally Once a dayTaking Aspir-81 81 MG Tablet Delayed Release 1 tablet Orally Once a dayTaking Diovan Taking Flaxseed Oil 2000 MG Capsule Orally Taking Nitro-Bid 2 % Ointment as directed Transdermal dailyTaking Simvastatin 40 MG Tablet 1 tablet in the evening Orally Once a dayTaking Vitamin D 2000 UNIT Tablet Orally Taking Nitro-Bid 2 % Ointment as directed Transdermal bid to toesNot-Taking/PRNCephalexin 500 MG Capsule 1 capsule Orally every 6 hrsCephalexin 500 MG Capsule 1 capsule Orally every 6 hrsValsartan 320 MG Tablet 1 tablet Orally Once a dayNitro-Bid 2 % Ointment as directed Transdermal apply bid to both forefeetMedication List reviewed and reconciled with the patientNot- Taking/PRN Cephalexin 500 MG Capsule 1 capsule Orally every 6 hrsNot-Taking/PRN Cephalexin 500 MG Capsule 1 capsule Orally every 6 hrsNot-Taking/PRN Valsartan 320 MG Tablet 1 tablet Orally Once a dayNot-Taking/PRN Nitro-Bid 2 % Ointment as directed Transdermal apply bid to both forefeetMedication List reviewed and reconciled with the patient * Allergies:?Penicillin: rashy es[Allergies Verified] Objective: * Vitals:?Ht: 5 ft 11 in, Wt: 175, BMI:24.40, Shoe size: 10. * Examination: ???General Examination: ?GENERAL APPEARANCE:?pleasant, alert, well nourished, well developed, well hydrated, with good attention to hygene/body habitus, and in no acute distress.?ORIENTED:?person,place, and time.?Neurological: ?SENSORY:?neurological exam reveals intact sensorium, pain sensation normal, vibration sensation intact, pinprick sensation is normal in the lower extremities, anesthesia, burning, tingling, B/L, Neurological exam demonstrates pop of mulitple toes zhao.?Vascular: ?DP PULSES:?02/20, B/L.?PT PULSES:?02/20, B/L.?CAPILLARY FILL TIME:?delayed, all digits, B/L .?SKIN TEMPERTURE GRADIENT OF THE LOWER EXTERMITIES:?decreased, cool to cold, proximal to distal, B/L .?HAIR GROWTH/TEXTURE/ELASTICITY/TURGOR:?decreased, B/L .?PIGMENTATION:?cyanotic, B/L .?Orthopedic: ?MUSCLE STRENGTH:?5/5 all groups in a symmetrical fashion , B/L .?FOOT MORPHOLOGY:?Pes Planus structure, B/L.?Ingrown Nail: ?INSPECTION:? Reveals nail incurvation, pain on palpation, groove hypertrophy, groove ischemia, Medial nail border, T5.?Nails: ?NAILS are:? Elongated, overgrown, dystrophic, lytic, greater than 3mm thick, discolored and friable with crumbly malodorous subungual debris, with pain on palpation, TA, T5.? Assessment: * Assessment: 1.?Raynauds disease without gangrene - I73.00 (Primary)?2.?Pain in left foot - M79.672?3.?Pain in right foot - M79.671?4.?Ingrown nail - L60.0?5.?Tinea unguium - B35.1? Plan: * Treatment: * Procedure Codes:? * Preventive Medicine:? ??Counseling:?Discussion:?-14: Office or other outpatient visit for the evaluation and management of an established patient, which required a medically appropriate history and/or examination and moderate level of decision making. When using time for code selection, 30-39 min of total time was spent on the day of the encounter interpreting the data and educating the patient as to the nature of their condition, treatment options available according to their individual PMH, meds, allergies, and overall health/living conditions, as well as any potential risks or complications that may occur from a failure to adhere to, and participate in, the recommended course of therapy. The discussion included a complete verbal, and/or written explanation of the examination results, any x-rays taken, the proposed diagnosis, and outline of the treatment plan. A schedule for future care needs was also explained. The patient verbalized an understanding of the instructions at this time and agreed to be an active participant in their treatment. If the patient should think of any questions or concerns after the visit, I have encouraged the patient to call the office; pt to call prn na need t5 ing nail adn consulted re tx of raynauds.?Fungal Nail Counseling:?The Pt. was counseled on the diagnosis, potential etiologies (including, but not limited to, environmental factors, genetic, immune deficiency), and the multiple treatment options for Onychomycosis. We discussed the risks and benefits of each option from performing no treatment, to ultraviolet light shoe treatment, to laser nail treatment, to applying topical antifungals, to taking oral antifungal medication, to surgical removal of the involved nail(s) with or without performing a matricectomy, or any combination thereof. We discussed the advantages and disadvantages of each of possible treatment and importance for adherence to all the recommended therapies for optimum success. This includes the necessity for weekly emery board self nail home debridements, and control the nail & skin environment as much as possible by only using a fresh, dry pair of shoes/socks each day, as well as keeping the skin as dry as possible through the use of sprays/powders if necessary. Pt was instructed to discard the estella board after use to prevent reinfectoin of the involved nail(s). We discussed the mycological and visual clinical effectiveness of topical vs oral antifungal treatments as well as each ones' potential side effects and/or devi patient-specific medication interactions. We discussed the reasons behind the important requirement of regular liver function testing with oral antifungal therapy for safety. Patient questions re: use, dosage, successful outcomes, blood tests, and possible pharmacutical interactions were reviewed and the patient verbalized that all answers were clearly understood, The Pt prefers topical treatment _ _vicks.? * Follow Up:?prn * Images: * Sign off status: Completed true * Provider:?Andres Seals DPM Date:? 024 Generated for Tico guidry/Jose/Delmer on:?01/29/2024 10:20 AM EST History and Physical Notes * HPI (History of Present Illness) Category Sub-Category Detail Notes Category Not es Ingrown toenail Nature: tenderness Location: Great toe, Right emily t Treatments: self treatment Aggravated by: any pressure Onset/Cause: unknown Course: intermittent Skin problems Nature: discolored and cold , achin g Location: B/L , Toe(s) Duration: several years Onset/Cause: gradual Course: intermittent Aggravated by: any pressure Treatments: nitrobid Severity/Quality: moderate Examination Category Sub-Category Detail Notes Category Not es Ingrown Nail INSPECTION: Reveals nail inc urvation, pain on palpation, groove hypertrophy, groove ischemia, Medial nail border, T5 Neurological SENSORY: neurological exa m reveals intact sensorium, pain sensation normal, vibration sensation intact, pinprick sensation is normal in the lower extremities, anesthesia, burning, tingling, B/L, Neurological exam demonstrates pop of mulitple toes zhao Orthopedic FOOT MORPHOLOGY: Pes Planus structure, B/ L MUSCLE STRENGTH: 5/5 all groups in a symmetrical fashion , B/L General Examination GENERAL APPEARANCE: pleasant , alert, well nourished, well developed, well hydrated, with good attention to hygene/body habitus, and in no acute distress ORIENTED: person,place, and ti me Vascular DP PULSES(B): 1/4, B/L PT PULSES(B): 1/4, B/L CAPILLARY FILL TIME: delayed, all digits , B/L TEMPERTURE GRADIENT(C): decreased, cool to cold, proximal to distal, B/L TROPHIC CONDITION-TEXTURE/ELASTICITY/TURGOR/HAIR GROWTH(B): decreased, B/L PIGMENTATION: cyanotic, B/L Nails NAILS are: Elongated, overg rown, dystrophic, lytic, greater than 3mm thick, discolored and friable with crumbly malodorous subungual debris, with pain on palpation, TA, T5
--- OUTSIDE RECORDS SUMMARY | 2024-01-29 10:21 | XMS_ITS | Patient Health Record ---
Author Organization [facility] Address [address] [facility] [place] [address] Care Team Providers Care Dye Machine Operator Name Role Phone Andres Seals Unavailable [phone] Wayne Acuna Unavailable Unavailable Allergies Allergen (clinical drug ingredient) Drug/Non Drug Allergy documented on EMR Reaction Allergy Type Onset Date Status Penicillin rash Drug Allergy Active Reason For Referral No Information Medications Medication SIG (Take, Route, Frequency, Duration) Notes Start Date End Date Status Aspir-81 81 MG 1 tablet Orally Once a day 04/13/2015 Active Diovan Active amLODIPine Besylate 2.5 MG 1 tablet Orally Once a day 04/13/2015 Active Cephalexin 500 MG 1 capsule Orally kye ry 6 hrs for 5 day(s) Not-Taking Nitro-Bid 2 % as directed Transder mal apply bid to both forefeet for 30 days 05/03/2015 Not-Taking Vitamin D 2000 UNIT Orally Active Nitro-Bid 2 % as directed Transder mal bid to toes for 90 days Active Nitro-Bid 2 % as directed Transder mal daily for 30 days 02/12/2021 Active Valsartan 320 MG 1 tablet Orally Once a day Not-Taking Simvastatin 40 MG 1 tablet in the even ing Orally Once a day 04/13/2015 Active Cephalexin 500 MG 1 capsule Orally kye ry 6 hrs for 5 day(s) Not-Taking Flaxseed Oil 2000 MG Orally Active Immunizations Vaccine Route Administration Date Status Comme nts COVID-19 Moderna Vaccine Unknown 05/18/2020 Administered 2020 unsure dates Social History Tobacco Use: Social History Observation [...] Are you an other tobacco user? No Problems Problem Type SNOMED Code ICD Code Onset Dates Problem Status W/U Status Risk Notes Problem 91047911 Plantar wart (B07.0) Active confirmed Problem 89613682 Non-pressure ulcer of right lower extremity, limited to breakdown of skin (L97.911) Active confirmed Problem 55039072 Lower limb length difference (M21.70) Active confirmed Problem Abscess of toe (687514273) Abscess of toe, left (L02.612) Active confirmed Problem 908639026 Raynauds disease without gangrene (I73.00) Active confirmed Vital Signs Height 5 ft 11 in in 06/04/2023 Weight 175 lbs 06/04/2023 BMI 24.40 kg/m2 06/04/2023 Encounters Encounter Location Date Provider Diagnosis [facility] [place] [address] [place] [address] 06/04/2023 Andres Seals Raynauds disease without gangrene [...] unguium (ICD-10 - B35.1) Plan Of Treatment Pending Test Test Name Order Date 82898- Debride <25 sq cm 04/24/2015 97942- Debride <25 sq cm 05/03/2015 81900- Debride <25 sq cm 05/18/2015 66137- Debride <25 sq cm 02/09/2016 51616 I&D ABSCESS- SIMPLE,SINGLE 016 17203 I&D ABSCESS- SIMPLE,SINGLE 016 Insurance Providers Payer Name Payer Address Payer Phone Subscriber Number Group Number Insured Name Patient Relationship to Insured Coverage Start Date Coverage End Date Medicare National [employer] [address] [facility] [place] [address] [id number] Tani Yu Self - patient is the insured 7 for Life [address] [place] [address] [id number] Tani Yu Self - patient is the insured Medical (General) History Medical History History ICD Code Hyperlipidemia Hypertension, benign Impotence of organic pain Disorder of sebaceous gland Verruca vulgaris Recent total retinal detachment Measles Raynauds Disease Arthritis Cholesterol Surgical History Surgery Date(Month/Year) cataract surgery-both eyes 02/06/15, 02/22 retinal laser 09/2013
== END 2024-01-29 10:30 | disposition home or self-care (01) ==
PROVIDERS: PCP Family Medicine; Visit Provider Internal Medicine Hypertension Specialist
DX: E87.1 Hypo-osmolality and hyponatremia (principal); I10 Essential (primary) hypertension
CPT/HCPCS: 99214

== ENCOUNTER → 2024-01-29 10:09 | Outpatient (BNVA) | payer MEDICARE, OTHER, SELFPAY | PROVIDERS: PCP Family Medicine; Visit Provider Internal Medicine Hypertension Specialist | DX: E87.1 Hypo-osmolality and hyponatremia (principal); I10 Essential (primary) hypertension | CPT/HCPCS: 99212 ==

== ENCOUNTER 2024-06-03 09:39 | Outpatient (AMB) | payer MEDICARE, OTHER, SELFPAY ==
--- NOTE | 2024-06-03 09:38 | HO.NEPHOV ---
Vital Signs 06/03/24 09:39 06/03/24 09:51 Height 5 ft 11 in Weight 163 lb 8 oz BMI 22.8 BP 140/62 H 130/60 Blood Pressure Location Lt brachial Lt brachial Position Sitting Sitting Pulse 67 Pulse Source Pulse Oximeter Pulse Oximetry (%) 99 Oxygen Delivery Method Room Air Intake Visit Reasons: Hyponatremia/Conf Intake Note: Patient has a pacemaker on 3 weeks ago. What Job Titles Mean Required: No Accompanied by: Self / Same As Patient Allergies Penicillins Allergy (Mild, Verified 06/03/24 09:42) Unknown Do you need a note to return to daycare/school/sports/work: No HPI Comments Details: Ranulfo is a 72-year-old man with a history of chronic hyponatremia. Recently he was in the emergency room and was found to have a sodium of 122. Subsequently sodium increased to 124 and he has been referred for further evaluation. During this time urine osmolality was 66 with a urine sodium of 77. Ranulfo admits to drinking 2-3 ;12 Oz cans of beer every day. He also drinks 1-2 bottles of water. He has no history of smoking at present. No weight loss No polyuria polydipsia. No shortness of breath cough expectoration. 06/30/23 Overall feeling about the same. He did not track his fluid intake. Twenty-four urine collection showed a volume of 1925 cc. Repeat sodium was 125 millimoles. 07/28/23 Unable to get urea powder due to cost and insurance issues. He continues to drink 2 cans of beer. No new issues 10/30/2023. Overall is doing well. No new complaints. He has some aches and pains but does not take any NSAIDs. He was prescribed sodium chloride tablets 1 g b.i.d.. However his blood pressure was elevated therefore he cut it down to half a tablet today. 01/29/24 ;No new issues 06/03/24 REcently had a PM inserted in April 2024 Feels better now PFSH Family History Mother Cancer Sister Cancer Sister Cancer Diabetes mellitus Social History Patient Tobacco Use Status: Former Tobacco user Physical Exam Vital Signs: Last Vital Signs Pulse 67 06/03/24 09:39 BP 140/62 H 06/03/24 09:39 Pulse Ox 99 06/03/24 09:39 Oxygen Delivery Method Room Air 06/03/24 09:39 BMI result Body Mass Index 22.8 Results Reviewed Results Reviewed: 05/17/24 Na 129 Cr 1.1 Nephrology Results: Sodium 125 mmol/L (135-145) L 06/26/23 Potassium 4.1 mmol/L (3.3-5.1) 06/26/23 Chloride 94 mmol/L (96-108) L 06/26/23 Carbon Dioxide 23 mmol/L (22-29) 06/26/23 BUN 14 mg/dL (9-16) 06/26/23 Creatinine 0.95 mg/dL (0.5-1.4) 06/26/23 Calcium 8.7 mg/dL (8.4-10.2) 06/26/23 Urine Protein Trace mg/dL (Neg-Trace) 06/26/23 Urine Creatinine 49.69 mg/dL 06/26/23 Assessment & Plan Assessment & Plan (1) Hyponatremia: Code(s): E87.1 - Hypo-osmolality and hyponatremia Category: Medical Plan: Ranulfo has a history of chronic asymptomatic hyponatremia. Based on the available lab data it appears that he probably has decreased free water clearance in the setting of beer intake. The low urine osmolality suggests a dilute urine which can be seen with excessive beer intake. 24 hour urine collection revealed a volume of 1925 cc. TSH was normal Cortisol was normal Repeat serum sodium was 129. Goal is to maintain serum sodium more than 130 millimoles. For now he should stay on oral free water restriction of 1.2 L per 24 hours and I have encouraged him to cut back on the beer intake. Unable to get urea powder due to cost and insurance issues. Keep sodium chloride tablets -half a day (2) HTN (hypertension): Code(s): I10 - Essential (primary) hypertension Category: Medical Plan: . Blood pressure is better controlled . Orders: Orders Basic Metabolic Panel 6 Months E87.1 - Hypo-osmolality and hyponatremia Coding Level of Care Code Est Pt Level 4 (58316) Diagnoses Hyponatremia E87.1 HTN (hypertension) I10
[2024-06-03 09:39] VITALS: BP 140/62; PULSE 67; O2SAT 99; BMI 22.8
[2024-06-03 09:51] VITALS: BP 130/60
--- OUTSIDE RECORDS SUMMARY | 2024-06-03 11:04 | XMS_ITS | Clinical Summary ---
Author Organization [facility], Address [address] [facility] [address] [place] [address] Phone Care Team Providers Care Recovery Manager Name Role Phone Danny Urias MD Primary Care Provider + [phone] Social History Tobacco Use Types Packs/Day Years Used Date Smoking Tobacco: Never Assessed Sex and Gender Information Value Date Recorded Sex Assigned at Not on file Legal Sex Male 9:59 AM EDT Gender Identity Not on file Sexual Orientation Not on file Plan of Treatment Health Maintenance Due Date Last Done Comments Colorectal Cancer Screening: Annual FOBT 11/22/2000 Colorectal Cancer Screening: Colonoscopy 11/22/2000 Colorectal Cancer Screening: Sigmoidoscopy 11/22/2000 Pneumococcal Vaccine: 50+ Ye ars (1 of - PCV) 11/22/2001 Influenza Vaccine (Season Ended) 2024 Hepatitis B Vaccine Aged Out No longe r eligible based on patient's age to complete this topic Insurance Medicare Care Teams Recovery Manager Relationship Specialty Start Date End Date Danny Urias MD PCP - General Internal Medicine 08/09/20
--- OUTSIDE RECORDS SUMMARY | 2024-06-03 11:04 | XMS_ITS | Data Portability ---
Author Organization MELISSA Lazo s, [address] Address [address] [place] [address] Assessment No assessment recorded. Plan of Treatment Reminders Order Date Submit Date Provider Last Modified By Organization Details Last Modified Time Details Appointments None recorded. Lab None recorded. Referral orthopedic surgeon referral 2023 024 [email or web address] [facility], [address] [place] [address], [address], 4 10:27:52 Procedures None recorded. Surgeries None recorded. Imaging None recorded. Medication Orders clindamycin HCl 300 mg capsule 2023 024 CAL [facility], [address] [place], [address], 4 10:22:48 Florastor 250 mg capsule 2023 024 [email or web address] [facility], [address] [place], [address], 4 16:04:48 Patient TargetsNo targets recorded. Patient Instructions Encounter Date Encounter Id Patient Instructions Last Modified By Organization Details Last Modified Time 08/13/2023 [id number] Bursitis is pain and swelling of the [...] your doctor if you can take an [id number] medicine. Do not take two or more [...] Pus draining from the area. A fever. [email or web address] Not available 08/13/2023 10:22:10 A/P: Olecranon bursitis to left elbow with full ROM and no joint involvement. Has mild local erythema. Otherwise, patient has no pain. Plan: Start on empiric ABX with conservative management and ORTHO F.U. Pt agreed to plan Not available 08/13/2023 16:14:01 Reason for Referral Orthopedic Surgeon Referral for Bursitis of olecranon of left elbow Referring Physician: Jermaine Merida, Urgent Care, Encounter Date: 08/13/2023 Problems Name Problem SNOMED Code Status Onset Date Resolution Date Notes Provider Name and Address Organization Details Recorded Time Hypertensive disorder 66706626 Active 2023 Georgina suarez [facility] 4 09:56:27 Hypercholestero lemia 15526933 Active 2023 Georgina suarez [facility] 4 09:56:32 Problem Notes None recorded. Medical Equipment None Reported. Allergies Allergen ID Allergen Name Allergen Category Reaction Reaction Severity Criticality Documentation Date Start Date Code Code System Note Provider Name and Address Organization Details Recorded Time 059470 Product containin g penicilli n (product) medicatio n hives Not available Not available 08/13/2023 67965 8001 SNOMED [facility] 4 09:56:57 Medications Name Sig Start [...] day by oral route for 14 days. 2023 active Not Available Not Available [...] height Body mass index (BMI) Body weight Pain severity - 0-10 verbal numeric rating [Score] - Reported Body temperature Respiratory rate Heart rate Oxygen saturation Oxygen saturation in Arterial blood by Pulse oximetry Systolic blood pressure Diastolic blood pressure Provider Name and Address Organization Details Last Updated DateTime 180.34 cm 24.4 kg/m2 48906.6 6 g 0 97.6 [degF] 18 /min 86 /min 99 % 99 % 134 mm[Hg] 78 mm[Hg] Georgina [facility]OR[facility] 09:59:18 Social History Question Answer Notes LastModified by [employer] Details LastModified Time Tobacco Smoking Status Never Smoker Georgina suarez [place] [facility] 08/13/2023 09:57:29 What Is Your Level Of [...] Diagnosis/Indication Diagnosis SNOMED-CT Code Diagnosis ICD10 Code Diagnosis Note [id number] [address] [place] [address] 06/27/2020 10:00:42 06/27/2020 10:43:21 [id number] MELISSA MACEDO [address] [place] [address] 08/13/2023 09:53:51 08/13/2023 10:27:52 Bursitis of olecranon of left elbow 8059367963 25793 M70.22 Infected o lecranon bursa 663423036 M71.129 Health Concerns Section Related Observation LastModified by Organization Detai ls LastModified Time None Recorded Concern Status LastModified by Organization Details LastModified Time None Recorded Advance Directives Directive None Recorded Payers Encounter Date Sequence Insurance Name Policy Number Policy Reina Covered Member ID Reina Member ID Guarantor Name 06/27/2020 1 MEDICARE B-ND: [facility] Tani Yu [id number] Tani Yu 08/13/2023 1 MEDICARE B-ND: [facility] Tani Yu [id number] Tani Aimee Notes Date Note Type [...] ROM WITH NO STIFFNESS. MELISSA MACEDO [address] [place], [address], [place] - [facility] 08/13/2023 16:14:08
--- OUTSIDE RECORDS SUMMARY | 2024-06-03 11:04 | XMS_ITS ---
Author Organization [facility] Address [address] [place] [address] Care Team Providers Care Needle Board Repairer Name Role Phone Andres Seals Unavailable [phone] Wayne Acuna Unavailable Unavailable Lili Lam Unavailable [phone] REASON FOR VISIT ? sooner appt Encounters Encounter [facility] Date [facility] [address] [place] [address] 05/11/2024 Lili Lam Plan Of Treatment Next Appt Details Provider Name:Lili alcantara, 06/28/2024 10:00:00 AM, [address] [place] [address], [phone], Progress Notes * Tani CORDOVA RDOB: [birth year] (73 yo M)Acc No.[id number]:05/11/2024 Patient:?Tani CORDOVA :1950???Age:73 Y???Sex:Male Address:[address] [place] [address], [address] * true * Date:? Generated for Printi ng/Faxing/eTransmitting on:?06/03/2024 11:04 AM EDT
--- OUTSIDE RECORDS SUMMARY | 2024-06-03 11:05 | XMS_ITS | Patient Health Record ---
Author Organization [facility] Hemant hardin Stuart Address [address] [facility] [place] [address] Care Team Providers Care Printed Circuit Board Panels Deburrer Name Role Phone Andres Seals Unavailable [phone] Wayne Acuna Unavailable Unavailable Lili Lam Unavailable [phone] Allergies Allergen (clinical drug ingredient) Drug/Non Drug [...] Problem Status W/U Status Risk Notes Problem 75525801 Plantar wart (B07.0) Active confirmed Problem 09386659 Non-pressure ulcer of right lower extremity, limited to breakdown of skin (L97.911) Active confirmed Problem 91559868 Lower limb length difference (M21.70) Active confirmed Problem Abscess of toe (579300250) Abscess of toe, left (L02.612) Active confirmed Problem 580461955 Raynauds disease without gangrene (I73.00) Active confirmed Vital Signs Height 5 ft 11 in in 06/04/2023 Weight 175 lbs 06/04/2023 BMI 24.40 kg/m2 06/04/2023 Encounters Encounter Location Date Provider Diagnosis [facility] [address] [address] 06/04/2023 Andres Seals Raynauds disease without gangrene I73.00 ; Pain in left foot M79.672 ; Pain in right foot M79.671 ; Ingrown nail L60.0 and Tinea unguium B35.1 [facility] [address] [address] 05/11/2024 Lili Lam Assessments Encounter Date Diagnosis (ICD Code) Assessment Notes Treatment Notes Treatment Clinical Notes Section Notes 06/04/2023 Raynauds disease without gangrene (ICD-10 - I73.00) 06/04/2023 Pain in left foot (ICD-10 - M79.672) 06/04/2023 Pain in right foot (ICD-10 - M79.671) 06/04/2023 Ingrown nail (ICD-10 - L60.0) 06/04/2023 Tinea unguium (ICD-10 - B35.1) Plan Of Treatment Pending Test Test Name Order Date 47669- Debride <25 sq cm 04/24/2015 83202- Debride <25 sq cm 05/03/2015 33233- Debride <25 sq cm 05/18/2015 19178- Debride <25 sq cm 02/09/2016 98908 I&D ABSCESS- SIMPLE,SINGLE 016 79997 I&D ABSCESS- SIMPLE,SINGLE 016 Next Appt Details Provider Name:Lili alcantara, 06/28/2024 10:00:00 AM, [address] [facility], [place], [address], Insurance Providers Payer Name Payer Address Payer Phone Subscriber Number Group Number Insured Name Patient Relationship to Insured Coverage Start Date Coverage End Date Medicare National [employer] [address] [place] [address] [id number] Tani Yu Self - patient is the insured 7 for Life [address] [place] [address] [id number] Tani Yu Self - patient is the insured Medical (General) History Medical History History ICD Code Hyperlipidemia Hypertension, benign Impotence of organic pain Disorder of sebaceous gland Verruca vulgaris Recent total retinal detachment Measles Raynauds Disease Arthritis Cholesterol Surgical History Surgery Date(Month/Year) cataract surgery-both eyes 02/06/15, 02/22 retinal laser 09/2013
== END 2024-06-03 09:53 | disposition home or self-care (01) ==
LOC: HO.HKA 09:39
PROVIDERS: Visit Provider Internal Medicine Hypertension Specialist
DX: E87.1 Hypo-osmolality and hyponatremia (principal); I10 Essential (primary) hypertension
CPT/HCPCS: 99214

== ENCOUNTER → 2024-06-03 09:39 | Outpatient (BNVA) | payer MEDICARE, OTHER, SELFPAY | PROVIDERS: Visit Provider Internal Medicine Hypertension Specialist | DX: E87.1 Hypo-osmolality and hyponatremia (principal); I10 Essential (primary) hypertension | CPT/HCPCS: 99212 ==

== ENCOUNTER 2024-11-25 09:54 | Outpatient (AMB) | payer MEDICARE, OTHER, SELFPAY ==
[2024-11-25 09:55] VITALS: BP 136/70; PULSE 68; O2SAT 98; BMI 23.4
--- NOTE | 2024-11-25 09:55 | HO.NEPHOV ---
Vital Signs 11/25/24 09:55 Height 5 ft 11 in Weight 168 lb BMI 23.4 BP 136/70 Blood Pressure Location Rt brachial Position Sitting Pulse 68 Pulse Source Pulse Oximeter Pulse Oximetry (%) 98 Oxygen Delivery Method Room Air Intake Visit Reasons: 6 MO FU confirmed Senior Radiation Therapist Required: No Accompanied by: Self / Same As Patient Allergies Penicillins Allergy (Mild, Verified 11/25/24 09:57) Unknown Medication List - Last Reconciled 11/25/24 by Drake Jimenez MD amlodipine 2.5 mg PO DAILY aspirin 81 mg PO DAILY atorvastatin 40 mg PO DAILY cholecalciferol (vitamin D3) 25 mcg PO DAILY flaxseed oil 1,000 mg PO DAILY valsartan 320 mg PO DAILY HPI Comments Details: Ranulfo is a 72-year-old man with a history of chronic hyponatremia. Recently he was in the emergency room and was found to have a sodium of 122. Subsequently sodium increased to 124 and he has been referred for further evaluation. During this time urine osmolality was 66 with a urine sodium of 77. Ranulfo admits to drinking 2-3 ;12 Oz cans of beer every day. He also drinks 1-2 bottles of water. He has no history of smoking at present. No weight loss No polyuria polydipsia. No shortness of breath cough expectoration. 06/30/23 Overall feeling about the same. He did not track his fluid intake. Twenty-four urine collection showed a volume of 1925 cc. Repeat sodium was 125 millimoles. 07/28/23 Unable to get urea powder due to cost and insurance issues. He continues to drink 2 cans of beer. No new issues 10/30/2023. Overall is doing well. No new complaints. He has some aches and pains but does not take any NSAIDs. He was prescribed sodium chloride tablets 1 g b.i.d.. However his blood pressure was elevated therefore he cut it down to half a tablet today. 01/29/24 ;No new issues 06/03/24 REcently had a PM inserted in April 2024 Feels better now 11/25/24 - The patient is a 74-year-old male presenting with hyponatremia and essential hypertension. - Hyponatremia: Sodium levels at 130 mmol/L in October, consistent with previous readings. - Essential Hypertension: Managed with amlodipine 2.5 mg and valsartan 320 mg, recent BP 136/70 mmHg. - Lifestyle: Consumes FEW alcoholic drinks daily(beer) , - Follow-up: Infrequent home BP checks, sees primary doctor biannually, next in December. [facility] Surgical History (Updated 11/25/24 @ 10:01 by ABIGAIL Lizarraga) History of permanent cardiac pacemaker placement (~04/2024) Family History Mother Cancer Sister Cancer Sister Cancer Diabetes mellitus Social History Patient Tobacco Use Status: Former Tobacco user Physical Exam Vital Signs: Last Vital Signs Pulse 68 11/25/24 09:55 BP 136/70 11/25/24 09:55 Pulse Ox 98 11/25/24 09:55 Oxygen Delivery Method Room Air 11/25/24 09:55 BMI result Body Mass Index 23.4 Comfortable Neck supple no JVD. Lungs entry equal no rales. Heart S1-S2 heard no gallop or rub. Abdomen soft nontender. Neuro alert awake oriented. No asterixis. Extremities no edema. Results Reviewed Nephrology Results: Sodium, (135-145) 125 mmol/L L 06/26/23 Potassium, (3.3-5.1) 4.1 mmol/L 06/26/23 Chloride, (96-108) 94 mmol/L L 06/26/23 Carbon Dioxide, (22-29) 23 mmol/L 06/26/23 BUN, (9-16) 14 mg/dL 06/26/23 Creatinine, (0.5-1.4) 0.95 mg/dL 06/26/23 Calcium, (8.4-10.2) 8.7 mg/dL 06/26/23 Urine Protein, (Neg-Trace) Trace mg/dL 06/26/23 Urine Creatinine 49.69 mg/dL 06/26/23 Assessment & Plan Assessment & Plan (1) Hyponatremia: Code(s): E87.1 - Hypo-osmolality and hyponatremia Category: Medical Plan: Ranulfo has a history of chronic asymptomatic hyponatremia. Based on the available lab data it appears that he probably has decreased free water clearance in the setting of beer intake. The low urine osmolality suggests a dilute urine which can be seen with excessive beer intake. 24 hour urine collection revealed a volume of 1925 cc. TSH was normal Cortisol was normal Repeat serum sodium was 129. Goal is to maintain serum sodium more than 130 millimoles. For now he should stay on oral free water restriction of 1.2 L per 24 hours Needs to eliminate beer consumption Unable to get urea powder due to cost and insurance issues. Keep sodium chloride tablets -half a day (2) HTN (hypertension): Code(s): I10 - Essential (primary) hypertension Category: Medical Plan: . Blood pressure is better controlled . Plan Monitor BMP Q 3 monthly - ordered Orders: Orders Basic Metabolic Panel 3 Months E87.1 - Hypo-osmolality and hyponatremia Basic Metabolic Panel 6 Months E87.1 - Hypo-osmolality and hyponatremia Basic Metabolic Panel 9 Months E87.1 - Hypo-osmolality and hyponatremia Basic Metabolic Panel 1 Year E87.1 - Hypo-osmolality and hyponatremia Coding Level of Care Code Est Pt Level 4 (33165) Diagnoses Hyponatremia E87.1 HTN (hypertension) I10
== END 2024-11-25 10:10 | disposition home or self-care (01) ==
LOC: HO.HKA 09:55
PROVIDERS: Visit Provider Internal Medicine Hypertension Specialist
DX: E87.1 Hypo-osmolality and hyponatremia (principal); I10 Essential (primary) hypertension
CPT/HCPCS: 99214

== ENCOUNTER → 2024-11-25 09:54 | Outpatient (BNVA) | payer MEDICARE, OTHER, SELFPAY | PROVIDERS: Visit Provider Internal Medicine Hypertension Specialist | DX: E87.1 Hypo-osmolality and hyponatremia (principal); I10 Essential (primary) hypertension; F10.10 Alcohol abuse, uncomplicated; Z95.0 Presence of cardiac pacemaker; Z87.891 Personal history of nicotine dependence; Z79.82 Long term (current) use of aspirin | CPT/HCPCS: 99212 ==